=== PATIENT | female | born 2000 ===

== ENCOUNTER 2019-02-05 11:30 | Emergency (ER) | payer SELFPAY ==
[2019-02-05 12:11] VITALS: BP 118/73
--- NOTE | 2019-02-05 12:15 | UC ---
FLU HPI - HPI Summary HPI Summary: 18 yo female presents with a subjective fever of 99F for the last 4 days and rash on her chest noticed last night. She tells me that for the last few days she has felt warm and her temperature has been a "fever" of around 99F. She has not taken anything for this and feels well otherwise. Last night she noticed a "spotty" rash on her chest. Says that she has had this rash before and it was a "stress rash" that went away with steroids. She admits to being very stressed at school as she is a student at , also has a mild sore throat. Denies sinus symptoms, cough, SOB, chest pain, abdominal pain, n/v. - History of Current Complaint Chief Complaint: UCGeneralIllness Stated Complaint: FEVER Time Seen by Provider: 02/05/19 12:15 Hx Obtained From: Patient Hx Last Menstrual Period: 01/22/19 Onset/Duration: Gradual Onset Severity Currently: None Pain Intensity: 0 - Allergy/Home Medications Allergies/Adverse Reactions: Allergies Allergy/AdvReac Type Severity Reaction Status Date / Time No Known Allergies Allergy Verified 02/05/19 12:10 Home Medications: Home Medications Control 1 mg PO DAILY WITH MEAL 02/05/19 [History Confirmed 02/05/19] PMH/Surg Hx/FS Hx/Imm Hx - Additional Past Medical History Additional PMH: None - Surgical History Surgical History: None - Family History Known Family History: Positive: None - Social History Occupation: Student Lives: Dormitory/Roommates Alcohol Use: Rare Substance Use Type: None Smoking Status (MU): Never Smoked Tobacco Review of Systems All Other Systems Reviewed And Are Negative: Yes Constitutional: Positive: Fever - subjective Skin: Positive: Rash Eyes: Positive: Negative ENT: Positive: Sore Throat Respiratory: Positive: Negative Cardiovascular: Positive: Negative Gastrointestinal: Positive: Negative Neurovascular: Positive: Negative Neurological: Positive: Negative Psychological: Positive: Negative Physical Exam - Summary Physical Exam Summary: GENERAL: NAD. WDWN. No pain distress. SKIN: On chest there is a diffuse mildly erythematous rash with 1-2mm papules. Mildly itchy. NTTP. No open wounds, drainage, warmth, or streaking. HEENT: Head: AT/NC Eyes: EOM intact. Conjunctiva clear without inflammation or discharge. Ears: Hearing grossly normal. TMs intact, no bulging, erythema, or edema. Nose: Nasal mucosa pink and moist. NTTP maxillary and frontal sinus. Throat: Posterior oropharynx without exudates, erythema, or tonsillar enlargement. Uvula midline. NECK: Supple. Nontender. No lymphadenopathy. CHEST: CTAB. No r/r/w. No accessory muscle use. Breathing comfortably and in no distress. CV: RRR. Without m/r/g. Pulses intact. Cap refill <2seconds NEURO: Alert. PSYCH: Age appropriate behavior. Triage Information Reviewed: Yes Vital Signs: Initial Vital Signs Temp 99.4 F 02/05/19 12:05 Pulse 103 02/05/19 12:05 Resp 18 02/05/19 12:05 BP 118/73 02/05/19 12:05 Pulse Ox 99 02/05/19 12:05 Laboratory Tests 02/05/19 12:28 Group A Strep Rapid Negative Vital Signs Reviewed: Yes Flu Course/Dx - Course Course Of Treatment: POC strep negative. CXR: IMPRESSION: No active cardiopulmonary disease is noted. She is afebrile and appears well on exam. Suspect viral illness. Will rx for po prednisone for her rash and have her f/u if her symptoms do not improve or worsen. - Differential Dx/Diagnosis Provider Diagnosis: Viral illness, Rash Discharge - Sign-Out/Discharge Documenting (check all that apply): Patient Departure All imaging exams completed and their final reports reviewed: Yes - Discharge Plan Condition: Stable Disposition: HOME Prescriptions: predniSONE TAB* [Deltasone 20 MG TAB*] 40 mg PO DAILY #10 tab Patient Education Materials: Acute Rash (ED), Viral Syndrome (ED) Referrals: No Primary Care Phys,NOPCP [Primary Care Provider] - Additional Instructions: If you develop a fever, shortness of breath, chest pain, new or worsening symptoms - please call your PCP or go to the ED. Please continue taking tylenol/ibuprofen for your discomfort and be rechecked if your symptoms do not improve in a few days - Billing Disposition and Condition Condition: STABLE Disposition: Home
== END 2019-02-05 12:58 | disposition home or self-care (01) ==
LOC: UCEAST 11:30
DX: B34.9 Viral infection, unspecified (principal); R21 Rash and other nonspecific skin eruption
CPT/HCPCS: 71046; 87651; 99202; G0463

== ENCOUNTER 2019-09-08 10:45 | Emergency (ER) | payer BC ==
[2019-09-08 11:18] VITALS: BP 105/66
--- NOTE | 2019-09-08 12:03 | UC ---
Eye Complaint HPI - HPI Summary HPI Summary: Pt states woke up with crusty eyes this AM, noticed eyes were pink yesterday. Pt has had congestion this week. [ End ] - History of Current Complaint Chief Complaint: UCEye Stated Complaint: EYE COMPLAINT Time Seen by Provider: 09/08/19 11:59 Hx Obtained From: Patient Hx Last Menstrual Period: 08/22/19 ?: No Onset/Duration: Sudden Onset, Lasting Days Severity Initially: Mild Severity Currently: Mild Pain Intensity: 0 Location of Injury: Conjunctiva, Sclera - Allergies/Home Medications Allergies/Adverse Reactions: Allergies Allergy/AdvReac Type Severity Reaction Status Date / Time No Known Allergies Allergy Verified 09/08/19 11:13 Home Medications: Home Medications Cetirizine* [ZyrTEC 10 MG TAB*] 10 mg PO DAILY 09/08/19 [History Confirmed 09/08] Norethindrone-E.estradiol-Iron [Lo Loestrin Fe 1-10 Tablet] 1 each PO DAILY [History Confirmed 09/08/19] PMH/Surg Hx/FS Hx/Imm Hx Previously Healthy: Yes - Surgical History Surgical History: None - Family History Known Family History: Positive: None Negative: Cardiac Disease, Hypertension - Social History Alcohol Use: None Substance Use Type: None Smoking Status (MU): Never Smoked Tobacco Review of Systems All Other Systems Reviewed And Are Negative: Yes Eyes: Positive: Drainage, Eye Redness Is Patient Immunocompromised?: No Physical Exam Triage Information Reviewed: Yes Appearance: Well-Appearing, Well-Nourished, Pain Distress Vital Signs: Initial Vital Signs Temp 98.2 F 09/08/19 11:15 Pulse 79 09/08/19 11:15 Resp 16 09/08/19 11:15 BP 105/66 09/08/19 11:15 Pulse Ox 100 09/08/19 11:15 Vital Signs Reviewed: Yes Eyes: Positive: Conjunctiva Inflamed, Discharge ENT Exam: Normal Dental Exam: Normal Neck exam: Normal Respiratory Exam: Normal Cardiovascular Exam: Normal Abdominal Exam: Normal Bowel Sounds: Positive: Present Musculoskeletal Exam: Normal Neurological Exam: Normal Psychological Exam: Normal Skin Exam: Normal Eye Complaint Course/Dx - Course Course Of Treatment: hx obtained, exam performed ,meds reviewed, treated for conjunctivitis bilateral. - Differential Dx/Diagnosis Differential Diagnosis/HQI/PQRI: Conjunctivitis Provider Diagnosis: Bilateral conjunctivitis Discharge ED - Sign-Out/Discharge Documenting (check all that apply): Patient Departure All imaging exams completed and their final reports reviewed: No Studies - Discharge Plan Condition: Stable Disposition: HOME Prescriptions: Erythromycin OPHTH.OINT* [Ilotycin OPHTH.OINT*] 1 applic BOTH EYES BEDTIME #1 tube Patient Education Materials: Conjunctivitis (ED) Referrals: No Primary Care Phys,NOPCP [Primary Care Provider] - Additional Instructions: Use the medication as prescribed. no contacts or eye makeup till cleared. - Billing Disposition and Condition Condition: STABLE Disposition: Home
== END 2019-09-08 12:25 | disposition home or self-care (01) ==
LOC: UCEAST 10:45
DX: H10.9 Unspecified conjunctivitis (principal)
CPT/HCPCS: 99212; G0463